=== PATIENT | female | born 1995 | race Caucasian/White ===

== ENCOUNTER 2025-01-22 20:20 | Emergency (ER) | payer MEDICAID ==
[2025-01-22] MEDS ORDERED: Sodium Chloride 0.9% 10 ML Syringe FLUSH PRN (21:41)
[2025-01-22 21:48] LABS: BASOPHILS ABSOLUTE AUTO 0.1 x10-3/uL (0.0-0.1); BASOPHILS PERCENT AUTO 0.4 % (0.2-1.5); EOSINOPHILS ABSOLUTE AUTO 0.0 x10-3/uL (0.0-0.8); EOSINOPHILS PERCENT AUTO 0.1 % (0.6-8.1); LYMPHOCYTES ABSOLUTE AUTO 2.3 x10-3/uL (1.0-4.4); LYMPHOCYTES PERCENT AUTO 19.4 % (18.4-52.1); MEAN PLATELET VOLUME 8.5 fL (7.1-12.4); MONOCYTES ABSOLUTE AUTO 0.6 x10-3/uL (0.3-1.0); MONOCYTES PERCENT AUTO 4.9 % (4.4-15.7); NEUTROPHILS ABSOLUTE AUTO 8.8 x10-3/uL (1.5-6.3); NEUTROPHILS PERCENT AUTO 75.2 % (30.8-76.2); PLATELET COUNT,PLT 272 x10(3)uL (151-488); RED BLOOD CELL COUNT 5.01 x10(6)uL (3.60-5.20); RED CELL DISTRIBUTION WIDTH 13.0 % (12.3-16.5); WHITE BLOOD CELL COUNT,WBC 11.8 x10-3/uL (3.0-10.3)
[2025-01-22 21:51] LABS: BLOOD UREA NITROGEN,BUN 10 mg/dL (7-18); CARBON DIOXIDE,CO2 22 mmol/L (21-32); CHLORIDE,CL 100 mmol/L (100-110); CREATININE 1.0 mg/dL (0.55-1.02); ESTIMATED GFR 78 mL/min (>60); GLUCOSE RANDOM 97 mg/dL (80-116); POTASSIUM,K 3.5 mmol/L (3.5-5.3); SODIUM,NA 136 mmol/L (135-145)
[2025-01-22 21:57] LABS: A/G RATIO 1.0; ALANINE AMINOTRANSFERASE,ALT 28 U/L (12-36); ASPARTATE AMNIOTRANSFERASE,AST 26 IU/L (5-25); BILIRUBIN TOTAL 0.3 mg/dL (0.1-1.3); PROTEIN TOTAL,TP 7.6 g/dL (6.0-8.0)
[2025-01-22] MEDS: Iopamidol 755 Mg/ML 100 ML Bottle IV SCH (22:12)
[2025-01-22] MEDS: methylPREDNISolone Sodium Succinate 125 MG/2 ML SDV IM ONE (23:58)
== END 2025-01-23 00:45 | disposition home or self-care (01) ==
LOC: FB.ED 20:20
DX: R10.12 Left upper quadrant pain (principal)
CPT/HCPCS: 36415; 74177; 80053; 83605; 83690; 84484; 85025; 86140; 93005; 93010; 96372; 99284; J2919; J7512; Q9967